=== PATIENT | male | born 1980 | race Caucasian/White ===

== ENCOUNTER 2021-02-11 11:22 | Emergency (ER) | payer OTHER ==
[~2021-02-11] VITALS: Ht 190.5 cm; Wt 81.6 kg
[2021-02-11 11:57] VITALS: BP 150/90
[2021-02-11] MEDS ORDERED: FLUORESCEIN SOD OPTH TEST STRIP LEFTEYE ONE (13:00)
[2021-02-11] MEDS ORDERED: TETRACAINE HCL 0.5% OPTH(EYE) SOLN 4ML LEFTEYE ONE (13:00)
== END 2021-02-11 13:08 | disposition home or self-care (01) ==
LOC: ER 11:22
DX: S05.02XA Injury of conjunctiva and corneal abrasion without foreign body, left eye, initial encounter (principal); X58.XXXA Exposure to other specified factors, initial encounter; Y93.89 Activity, other specified; Y92.89 Other specified places as the place of occurrence of the external cause; Y99.8 Other external cause status